=== PATIENT | female | born 1990 | race Caucasian/White ===

== ENCOUNTER 2020-03-22 02:25 | Emergency (ER) | payer SELFPAY ==
[2020-03-22 05:17] LABS: ABSOLUTE EOSINOPHILS # (AUTO) 0.1 10^3/uL (0.0-0.6); ABSOLUTE LYMPHOCYTES (AUTO) 2.2 10^3/uL (0.5-4.7); ABSOLUTE MONOCYTES (AUTO) 0.8 10^3/uL (0.1-1.4); ABSOLUTE NEUT (AUTO) 7.8 10^3/uL (1.7-8.2); BASOPHILS % (AUTO) 0.3 % (0-2); EOSINOPHILS % (AUTO) 0.8 % (0-6); HEMATOCRIT 42.8 % (36.0-47.0); HEMOGLOBIN 14.9 g/dL (12.0-15.5); LYMPHOCYTES % (AUTO) 19.9 % (13-45); MEAN CORPUSCULAR HEMOGLOBIN 32.6 pg (27.0-33.4); MEAN CORPUSCULAR HGB CONC 34.8 g/dL (32.0-36.0); MEAN CORPUSCULAR VOLUME 94 fl (80-97); MONOCYTES % (AUTO) 7.5 % (3-13); PLATELET COUNT 323 10^3/uL (150-450); RED BLOOD COUNT 4.58 10^6/uL (3.72-5.28); RED CELL DISTRIBUTION WIDTH 13.1 % (11.5-14.0); SEGMENTED NEUTROPHILS % (AUTO) 71.5 % (42-78); TOTAL CELLS COUNTED % (AUTO) 100 %
[2020-03-22 05:23] LABS: ALBUMIN 5.2 g/dL (3.5-5.0); ALKALINE PHOSPHATASE 82 U/L (38-126); ANION GAP 12 (5-19); ASPARTATE AMINO TRANSFERASE 25 U/L (14-36); BILIRUBIN,DIRECT 0.2 mg/dL (0.0-0.4); BILIRUBIN,TOTAL 0.7 mg/dL (0.2-1.3); BLOOD UREA NITROGEN 12 mg/dL (7-20); CALCIUM 10.4 mg/dL (8.4-10.2); CARBON DIOXIDE 25 mmol/L (22-30); CHLORIDE 101 mmol/L (98-107); GLUCOSE 101 mg/dL (75-110); POTASSIUM 3.9 mmol/L (3.6-5.0); TOTAL PROTEIN 8.5 g/dL (6.3-8.2)
[2020-03-22] MEDS ORDERED: METOCLOPRAMIDE HCL INJ/PF 10 MG/2 ML SDV IV ONE (05:34)
[2020-03-22] MEDS ORDERED: ACETAMINOPHEN 325 MG TABLET PO ONE (05:53)
--- NOTE | 2020-03-22 05:55 | ER Document Report ---
ED GI/ - General Chief Complaint: OB Problem (<20wks) Stated Complaint: 8 WEEKS / VOMITING / Time Seen by Provider: 03/22/20 05:38 Mode of Arrival: Ambulatory Information source: Patient Notes: 29-year-old female 2, para 1 presents to the emergency room complaining of nausea, vomiting and abdominal pain for the past 3 days. States she is unable to tolerate anything p.o. denies any vaginal discharge. Denies any vaginal bleeding. Positive home test a month ago. No current OB care. No meds for symptoms. No fevers. No urinary symptoms. No recent travel. No COVID-19 exposure. TRAVEL OUTSIDE OF THE [place] IN LAST 30 DAYS: No - Related Data Allergies/Adverse Reactions: Penicillins Allergy (Verified 03/22/20 05:53) Past Medical History - General Information source: Patient Last Menstrual Period: 01/22/20 - Social History Smoking Status: Never Smoker Frequency of alcohol use: None Drug Abuse: None Family History: Reviewed & Not Pertinent Review of Systems - Review of Systems Constitutional: No symptoms reported EENT: No symptoms reported Cardiovascular: No symptoms reported Respiratory: No symptoms reported Gastrointestinal: Abdominal pain, Nausea, Vomiting. denies: Diarrhea, Constipation Genitourinary: No symptoms reported Female Genitourinary: . denies: Vaginal discharge, Vaginal bleeding Skin: No symptoms reported Neurological/Psychological: No symptoms reported -: Yes All other systems reviewed and negative Physical Exam - Vital signs Vitals: Temp Pulse Resp BP Pulse Ox 98.6 F 87 18 116/70 100 03/22/20 02:49 03/22/20 02:49 03/22/20 02:49 03/22/20 02:49 03/22/20 02:49 - Notes Notes: VITAL SIGNS: Within normal limits. GENERAL: Mild acute distress, non-toxic appearance. HEAD: Normal with no signs of head trauma. EYES: PERRLA, EOMI, conjunctiva normal, no discharge. EARS: Hearing grossly intact. NOSE: Normal. THROAT: Oropharynx is normal. NECK: Normal range of motion, no tenderness, supple, no lymphadenopathy, No adenopathy, no JVD. CHEST: Clear breath sounds bilaterally. No wheezes, rales, or rhonchi. CARDIAC: Regular rate and rhythm. S1 and S2, without murmurs, gallops, or rubs. VASCULAR: No Edema. Peripheral pulses normal and equal in all extremities. ABDOMEN: Normal and soft with no tenderness, no masses or pulsatile masses. No organomegaly. Positive bowel sounds x4. No CVA tenderness noted bilaterally. GASTROINTESTINAL: Bowel sounds normal GENITOURINARY: Normal, No tenderness LYMPATHTIC: No lymphadenopathy noted. MUSCULOSKELETAL: Good range of motion of all major joints. Extremities without clubbing, cyanosis or edema. NEUROLOGICAL: Alert and oriented x 3. No focal sensory or strength deficits. Speech normal. Follows commands appropriately. PSYCHIATRIC: Normal Affect, judgement and mood. SKIN: Normal appearance with no rashes or lesions. Course - Re-evaluation Re-evalutation: 03/22/2020 07:29 Call placed to ultrasound for ultrasound results. States they will resend to radiologist if no report will radiologist for report. 03/22/20 07:32 Patient is resting comfortably she is pain-free on exam. Tolerating p.o. fluids. Reviewed lab results with patient. Aware ultrasound report is still p ending. 03/22/20 08:03 Patient continues to rest comfortably remains pain-free on exam. She is able to tolerate p.o. fluids. Reviewed ultrasound results with patient. Counseled take medications as prescribed. Outpatient follow-up with [facility] as discussed. On- call physician was provided. Patient was given strict return to the emergency room guidelines. Return for any new or worsening symptoms. All questions were answered. Patient verbalized understanding and agrees with plan of care. - Vital Signs Vital signs: Temp Pulse Resp BP Pulse Ox 98.6 F 76 20 105/63 100 03/22/20 02:49 03/22/20 05:21 03/22/20 05:21 03/22/20 05:21 03/22/20 05:21 - Laboratory Result Diagrams: 03/22/20 04:45 03/22/20 04:45 Laboratory results interpreted by me: 03/22/20 03/22/20 03/22/20 04:45 04:45 06:10 WBC 11.0 H Calcium 10.4 H Total Protein 8.5 H Albumin 5.2 H Beta HCG, Quant 631641.00 H Urine Protein 30 H Urine Ketones 80 H Ur Leukocyte Esterase MODERATE H Urine Ascorbic Acid 20 H Discharge - Discharge Clinical Impression: Intrauterine Nausea and vomiting Qualifiers: Vomiting type: unspecified Vomiting Intractability: non-intractable Qualified Code(s): R11.2 - Nausea with vomiting, unspecified Condition: Stable Disposition: HOME, SELF-CARE Instructions: Reglan ([facility]), Vomiting ([facility]), Hyperemesis Gravidarum ([facility]), ([facility]) Additional Instructions: Medications as prescribed. Outpatient follow-up with [facility] as discussed. Return to the emergency room for any new or worsening symptoms. Prescriptions: Metoclopramide HCl [Reglan 10 mg Tablet] 1 tab PO Q6H PRN #12 tablet PRN Reason: Referrals: UMAIR MEDINA MD [ACTIVE STAFF] - Follow up in 1 week (Call to schedule an outpatient follow-up appointment.)
[2020-03-22 06:28] LABS: APPEARANCE,URINE SLIGHTLY-CLOUDY; BILIRUBIN,URINE NEGATIVE (NEGATIVE); COLOR,URINE YELLOW; GLUCOSE, URINE NEGATIVE (NEGATIVE); KETONES,URINE 80 mg/dL (NEGATIVE); LEUKOCYTE ESTERASE,URINE MODERATE (NEGATIVE); NITRITE,URINE NEGATIVE (NEGATIVE); PROTEIN,URINE 30 mg/dL (NEGATIVE); URINE SPECIFIC GRAVITY 1.029; UROBILINOGEN,URINE NEGATIVE mg/dL (<2.0)
--- NOTE | 2020-03-22 07:59 | RADIOLOGY REPORT (SQ) ---
FIRST TRIMESTER OBSTETRIC ULTRASOUND: 03/22/2020 5:52 AM CDT COMPARISON: None available HISTORY: 29-year old patient with abdominal pain. TECHNIQUE: Multiple welsh scale and color Doppler images of the pelvis were obtained transabdominally and transvaginally. FINDINGS: The uterus measures 14.8 x 8.4 x 6.7 cm. A single gestational sac is seen within the uterus. The sac contains both a yolk sac and an embryo. The crown-rump length measures 1.68 cm corresponding to 8 weeks and 1 day(s). Cardiac motion is present with a heart rate of 165 bpm. No perigestational hemorrhage is seen. The cervix measures 2.9 cm in length. The right and left ovaries are normal in size and sonographic appearance. The right ovary measures 4.7 x 2.5 x 2.8 cm. The left ovary measures 4.4 x 3.2 x 2.9 cm. Normal arterial waveforms were obtained from both ovaries. No free fluid is seen in the cul-de-sac. IMPRESSION: Single live intrauterine at 8 weeks and 1 day(s) consistent with an estimated due date of 10/31/2020. Obstetric follow up for routine care should be performed.
[2020-03-22 08:23] VITALS: BP 104/62
== END 2020-03-22 08:23 | disposition home or self-care (01) ==
LOC: ER 02:25
DX: O21.9 Vomiting of pregnancy, unspecified (principal); O26.891 Other specified pregnancy related conditions, first trimester; R10.9 Unspecified abdominal pain; Z3A.08 8 weeks gestation of pregnancy
CPT/HCPCS: 99284; 96374; 36415; 87086; 84702; 83690; 85025; 80053; 81001; 76801; J2765